=== PATIENT | male | born 1965 | race Caucasian/White ===

== ENCOUNTER 2016-08-22 06:52 | Day surgery (SDC) | payer BC ==
[2016-08-22] MEDS ORDERED: Lactated Ringers 1,000 ML IV SCH (07:45)
[2016-08-22] MEDS ORDERED: Sodium Chloride 0.9% 10 ML Syringe FLUSH PRN (07:45)
[2016-08-22] MEDS ORDERED: Metoclopramide 10 MG/2 ML SDV IV ONE (08:45)
[2016-08-22] MEDS ORDERED: Ondansetron 4 MG/2 ML SDV IVPUSH ONE (08:45)
[2016-08-22] MEDS ORDERED: Propofol 200 MG/20 ML SDV IV ONE (08:45)
[2016-08-22] MEDS ORDERED: Metoprolol Tartrate 5 MG/5 ML SDV IV ONE (08:45)
[2016-08-22] MEDS ORDERED: Simethicone Drops 40 MG/0.6 ML 30 ML Bottle ONE (09:02)
--- NOTE | 2016-08-22 09:17 | PCM.OPNOTE ---
- General Post-Op/Procedure Note Date of Surgery/Procedure: 08/22/16 Operative Procedure(s): c scope Findings: normal colon Pre Op Diagnosis: colon cancer screening Post-Op Diagnosis: normal colon Anesthesia Technique: MAC Primary Surgeon: Kevin Hook Anesthesia Provider: Portillo Walker Pathology: none Complications: None Condition: Good Free Text/Narrative:: see dictation
--- NOTE | 2016-08-22 10:13 | OR ---
DATE OF OPERATION: 08/22/2016 SURGEON: Kevin Hook MD PROCEDURE PERFORMED: Colonoscopy. PREOPERATIVE DIAGNOSIS: Colon cancer screening. POSTOPERATIVE DIAGNOSIS: Normal scope. INDICATIONS FOR PROCEDURE: This 51-year-old white male presents for screening colonoscopy. He was offered and accepted same. DESCRIPTION OF OPERATION: After an excellent IV sedation was administered, digital rectal exam was performed. No marked abnormality was noted. The flexible colonoscope was inserted and advanced without difficulty to the cecum. The prep was excellent. The following findings were noted. Ascending colon, unremarkable. Transverse colon, unremarkable. Descending colon, unremarkable. Sigmoid and rectum, unremarkable. Colon was deflated as the scope was removed. The patient tolerated the procedure well and was taken to recovery room in good condition. /[id number] RODO/ERNESTINE
[2016-08-22 12:22] VITALS: BP 137/101
== END 2016-08-22 12:15 | disposition home or self-care (01) ==
LOC: FB.SDS 06:52
PROVIDERS: ATTEND Surgery
DX: Z12.11 Encounter for screening for malignant neoplasm of colon (principal)
CPT/HCPCS: 45378; A9270; J7120; J2405; J2704; J2765; J3490

== ENCOUNTER 2017-07-28 07:12 | Day surgery (SDC) | payer BC ==
[~2017-07-28 07:12] MED LIST: Lactated Ringers 1,000 ML IV SCH; Sodium Chloride 0.9% 10 ML Syringe FLUSH PRN; ceFAZolin 2 GM in Sodium Chloride 0.9% 100 ML IV ONE
[2017-07-28] MEDS ORDERED: Lidocaine 2% 100 MG/5 ML Syringe IVPUSH ONE (08:00)
[2017-07-28] MEDS ORDERED: Ondansetron 4 MG/2 ML SDV IVPUSH ONE (08:00)
[2017-07-28] MEDS ORDERED: Propofol 200 MG/20 ML SDV IV ONE (08:00)
[2017-07-28] MEDS ORDERED: Succinylcholine 200 MG/10 ML MDV IV ONE (08:00)
[2017-07-28] MEDS ORDERED: Ketorolac 30 MG/ML SDV IVPUSH ONE (08:00)
[2017-07-28] MEDS ORDERED: ceFAZolin 2 GM in Premix Bag 1 BAG IV ONE (08:00)
[2017-07-28] MEDS ORDERED: Rocuronium 100 MG/10 ML MDV IV ONE (08:00)
[2017-07-28] MEDS ORDERED: Midazolam 1 MG/ML 2 ML SDV IV ONE (08:00)
[2017-07-28] MEDS ORDERED: Sugammadex Sodium 200 MG/2 ML VIAL IV ONE (08:00)
[2017-07-28] MEDS ORDERED: fentaNYL 100 MCG/2 ML SDV IV ONE (08:00)
[2017-07-28] MEDS ORDERED: Bupivacaine 0.5% 30 ML SDV INJECT ONE (08:22)
[2017-07-28] MEDS ORDERED: Lidocaine 1% with EPINEPHrine 1:100,000 20 ML MDV INJECT ONE (08:22)
--- NOTE | 2017-07-28 08:30 | PREOP ---
ADMISSION DATE: 07/28/2017 CHIEF COMPLAINT: Umbilical hernia. HISTORY OF PRESENT ILLNESS: This 52-year-old white male, who has a longstanding history of reducible umbilical hernia that has been present for many years, has not really grown in size. It is easily reduced. He has no obstructive symptoms. 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 MEDICATIONS: None. ALLERGIES: To sulfa. PAST MEDICAL HISTORY: Negative. PAST SURGICAL HISTORY: Significant for colonoscopy, which was performed last year. FAMILY HISTORY: Noncontributory. REVIEW OF SYSTEMS: HEENT: Review is positive for tinnitus. RESPIRATORY: Negative. CARDIOVASCULAR: Negative. GASTROINTESTINAL: Negative. GENITOURINARY, MUSCULOSKELETAL, SKIN, NEUROLOGIC are all negative. PHYSICAL EXAMINATION: GENERAL: This is a well-developed, well-nourished white male, appearing in no acute distress. VITAL SIGNS: Vital signs reviewed and stable, afebrile. HEENT: Grossly within normal limits. LUNGS: Clear to auscultation. HEART: Had a regular rate and rhythm. ABDOMEN: Soft, nontender. There is reducible umbilical hernia present. SKIN: Warm and dry. ASSESSMENT: Umbilical hernia. PLAN: Repair procedure and risks explained to the patient to include bleeding, infection, injury to bowel, bladder, and intestine. The use of mesh was also discussed, which were used due to his work. He expresses understanding, and he asked us to proceed. /[id number] /MODL
[2017-07-28] MEDS ORDERED: Acetaminophen/HYDROcodone 325-5 MG Tab PO PRN (08:44)
--- NOTE | 2017-07-28 08:46 | PCM.OPNOTE ---
- General Post-Op/Procedure Note Date of Surgery/Procedure: 07/28/17 Operative Procedure(s): umbilical hernia repair with mesh Findings: 4 cm defect Pre Op Diagnosis: umbilical hernia Post-Op Diagnosis: Same Anesthesia Technique: General ET Tube, Local (5 ml 1 % lido with epi/0.5% buvipicaine) Primary Surgeon: Kevin Hook Anesthesia Provider: Brandy Saleem Pathology: none Complications: None Condition: Good Free Text/Narrative:: see dictation
--- NOTE | 2017-07-28 09:45 | OR ---
DATE OF OPERATION: 07/28/2017 SURGEON: Kevin Hook MD PROCEDURE PERFORMED: Umbilical hernia repair. PREOPERATIVE DIAGNOSIS: Umbilical hernia. POSTOPERATIVE DIAGNOSIS: Umbilical hernia. INDICATIONS FOR PROCEDURE: This is a 52-year-old white male, who is referred with a history of an umbilical hernia. He was offered and accepted repair. INTRAOPERATIVE FINDINGS: As follows; a total of 5 mL of our local mixture was used to infiltrate the area prior to surgery. The patient had a roughly 4 cm defect which was repaired with a Ventralex ST Hernia Patch, reference #[id number] with lot #[id number], expiration date 2019-05-12. It was a 6 cm patch. DESCRIPTION OF PROCEDURE: After an excellent general anesthetic was administered, the patient was prepped and draped in usual sterile manner. Our local was used to infiltrate along the plane and incision site and also around the umbilicus. A curvilinear incision was then carried out and the sharp dissection was then carried out dissecting the hernia sac free from the underlying structures. The hernia sac was opened and a slight incision was made through the fascia superior and inferior to allow reduction of the preperitoneal fat, which was done. The hernia sac was dissected free from the preperitoneal fat and passed off the field. It was not submitted for some pathologic exam. After clearing the preperitoneal fat from the abdominal wall, mesh was then inserted, and then sewn into position with a running 0 Prolene. The tails were excised as we sewed in the mesh. The umbilicus was then tacked to the anterior abdominal wall with a [id number] 0 Vicryl and gloria were used to close the skin. Needle, sponge, and instrument counts were reported as correct. The patient was taken to recovery room in good condition. /[id number] /MODL
[2017-07-28 12:58] VITALS: BP 119/73
== END 2017-07-28 11:35 | disposition home or self-care (01) ==
LOC: FB.SDS 07:12
PROVIDERS: ATTEND Surgery
DX: K42.9 Umbilical hernia without obstruction or gangrene (principal); Z88.2 Allergy status to sulfonamides
CPT/HCPCS: 49585; A9270; C1781; C9399; J0330; J0690; J1885; J2250; J2405; J2704; J3010; J7120